=== PATIENT | male | born 1970 | race Hispanic/Latino ===

== ENCOUNTER 2018-08-31 16:19 | Emergency (ER) | payer BC ==
[~2018-08-31] VITALS: Ht 167.6 cm; Wt 158.8 kg
[2018-08-31] MEDS ORDERED: ACETAMINOPHEN 325 MG TAB PO ONE (16:45)
[2018-08-31] MEDS ORDERED: CLONIDINE HCL 0.1 MG TAB PO ONE (16:45)
[2018-08-31] MEDS ORDERED: IBUPROFEN 200 MG TAB PO STA (16:45)
--- NOTE | 2018-08-31 17:34 | Diagnostic Imaging Report ---
EXAMINATION: CXR 2 VIEW - HOPD INDICATION: Congested ^[id number] ^[id number] COMPARISON: None FINDINGS: PA and lateral views TUBES and LINES: None. LUNGS: Lungs are well inflated. There is no evidence of pneumonia or pulmonary edema. PLEURA: No pleural effusion or pneumothorax. HEART AND MEDIASTINUM: The cardiomediastinal silhouette is unremarkable.. BONES AND SOFT TISSUES: No focal osseous lesions. Soft tissues are unremarkable. UPPER ABDOMEN: No free air under the diaphragm. IMPRESSION: No acute thoracic abnormality. Signed by: Dr. Malia Hearn MD on 08/31/2018 5:31 PM
== END 2018-08-31 18:06 | disposition home or self-care (01) ==
LOC: FSED 16:19
DX: R05 Cough (principal); J20.9 Acute bronchitis, unspecified; J30.2 Other seasonal allergic rhinitis; F17.210 Nicotine dependence, cigarettes, uncomplicated
CPT/HCPCS: 71046; 80053; 82553; 84484; 93005; 99284

== ENCOUNTER 2024-02-18 12:38 | Emergency (ER) | payer BC, OTHER ==
[~2024-02-18] VITALS: Ht 170.2 cm; Wt 123.6 kg
[2024-02-18] MEDS ORDERED: CLONIDINE HCL 0.2 MG TAB PO ONE (13:15)
[2024-02-18] MEDS: CLONIDINE HCL 0.1 MG TAB PO ONE ×2 (13:19→13:55)
[2024-02-18] MEDS: SODIUM CHLORIDE 0.9% 500ML 500 ML IV STA (13:29)
[2024-02-18] MEDS ORDERED: MOUNJARO5 MG/0.5 M (13:34)
[2024-02-18] MEDS ORDERED: OMEPRAZOLE40 MG PO (13:34)
[2024-02-18] MEDS: KETOROLAC TROMETHAMINE 30 MG/ML VIAL IV ONE (13:46)
[2024-02-18 13:55] VITALS: BP 173/89
[2024-02-18 15:00] VITALS: PULSE 99; RESP 18; TEMP 98.8; O2SAT 96
[2024-02-18] MEDS ORDERED: TYLENOL325 MG PO (15:03)
[2024-02-18] MEDS ORDERED: DIPHENHYDRAMINE25 M2 PO (15:03)
[2024-02-18] MEDS ORDERED: CEFDINIR300 MG PO (15:03)
[2024-02-18] MEDS ORDERED: IOPAMIDOL 370 MG/ML 100 ML INFUS..BTL INJ ONE (15:05)
== END 2024-02-18 15:35 | disposition home or self-care (01) ==
LOC: FSED 12:43
DX: R05.9 Cough, unspecified (principal); J03.90 Acute tonsillitis, unspecified; E11.65 Type 2 diabetes mellitus with hyperglycemia; I10 Essential (primary) hypertension; K21.9 Gastro-esophageal reflux disease without esophagitis; E66.01 Morbid (severe) obesity due to excess calories; Z11.52 Encounter for screening for COVID-19; F17.210 Nicotine dependence, cigarettes, uncomplicated
CPT/HCPCS: 0223U; 70491; 80053; 83518; 85025; 87400; 96374; 99284; J0696; J1885; J7040; Q9967